=== PATIENT | male | born 1960 | race Caucasian/White ===

== ENCOUNTER 2017-08-30 10:25 | Outpatient (RCR) | payer MEDICAID, SELFPAY ==
[2017-08-30 11:55] LABS: Absolute Lymphocyte Count 0.68 X10^3/ul (0.83-4.51); Absolute Neutrophil Count 2.4 X10^3/uL (2.0-7.7); Basophil# 0.03 X10^3/uL; Basophil% 0.8 % (0-1); Eosinophils% 7.7 % (0-5); Hematocrit 37.1 % (40-54); Hemoglobin 12.5 g/dl (13.0-16.5); Lymphocyte # 0.68 X10^3/ul (4.0); Lymphocyte % 17.5 % (19-41); Mean Corp Hgb Conc 33.7 g/gl (32-36); Mean Corpuscular Volume 112.8 fL (80-94); Mean Platelet Vol. 13.9 fl (6.2-12.0); Monocyte# 0.44 X10^3/uL; Monocyte% 11.3 % (0-10); Neutrophil # 2.41 X10^3/uL (2.7-7.7); Neutrophil % 62.2 % (47-70); POSITIVE COUNT NO; POSITIVE DIFFERENTIAL NO; POSITIVE MORPHOLOGY NO; Platelet Count 56 K/mm3 (150-450); RBC Distribution Width SD 57.6 fl (35.1-43.9); Red Blood Count 3.29 M/mm3 (4.6-6.2); White Blood Count 3.9 K/mm3 (4.4-11.0)
[2017-08-30 12:03] LABS: International Normalized Ratio 1.5; Prothrombin Time (Protime)PT. 17.3 SECONDS (11.7-14.9)
[2017-08-30 12:27] LABS: AST(SGOT) 58 U/L (15-37); Alanine Aminotransfer ALT/SGPT 32 U/L (12-78); Albumin, Serum 2.4 g/dL (3.4-5.0); Alkaline Phosphatase 361 U/L (45-117); Anion Gap 7 (5-15); BUN 15 mg/dL (7-18); BUN/Creat Ratio 12.9 RATIO (10-20); Bilirubin, Direct 1.89 mg/dL (0.00-0.30); Chloride 97 mmol/L (98-107); Creatinine, Serum 1.16 mg/dL (0.70-1.30); EST Glomerular Filtration Rate 69 mL/min (>60); Est Glom Filt Rate - Afr Amer 84 mL/min (>60); Globulin 5.8 g/dL (2.2-4.2); Glucose 395 mg/dL (70-110); Potassium 4.6 mmol/L (3.5-5.1); Protein, Total 8.2 g/dL (6.4-8.2); Sodium Level 131 mmol/L (136-145)
== END 2017-08-30 10:40 | disposition home or self-care (01) ==
LOC: LAB 10:25
PROVIDERS: Family Provider Preventive Medicine Occupational Medicine; PCP Preventive Medicine Occupational Medicine
DX: Z76.82 Awaiting organ transplant status (principal)
CPT/HCPCS: 36415; 80048; 80076; 85025; 85610

== ENCOUNTER 2017-10-26 11:01 | Outpatient (RCR) | payer MEDICAID, SELFPAY ==
[2017-10-03 13:58] LABS: International Normalized Ratio 1.4; Prothrombin Time (Protime)PT. 16.7 SECONDS (11.7-14.9)
[2017-10-03 14:03] LABS: Absolute Lymphocyte Count 0.58 X10^3/ul (0.83-4.51); Absolute Neutrophil Count 2.4 X10^3/uL (2.0-7.7); Basophil# 0.04 X10^3/uL; Basophil% 1.1 % (0-1); Eosinophil# 0.24 X10^3/uL; Eosinophils% 6.4 % (0-5); Hematocrit 34.8 % (40-54); Hemoglobin 12.5 g/dl (13.0-16.5); Lymphocyte # 0.58 X10^3/ul (4.0); Lymphocyte % 15.5 % (19-41); Mean Corp Hgb Conc 35.9 g/gl (32-36); Mean Corpuscular Hgb 39.1 pg (27.0-32.0); Mean Corpuscular Volume 108.8 fL (80-94); Mean Platelet Vol. 13.3 fl (6.2-12.0); Monocyte% 13.4 % (0-10); Neutrophil # 2.37 X10^3/uL (2.7-7.7); Neutrophil % 63.3 % (47-70); RBC Distribution Width CV 13.5 % (11.6-14.6); RBC Distribution Width SD 52.2 fl (35.1-43.9); White Blood Count 3.7 K/mm3 (4.4-11.0)
[2017-10-03 14:22] LABS: AST(SGOT) 59 U/L (15-37); Alanine Aminotransfer ALT/SGPT 44 U/L (16-61); Albumin, Serum 2.4 g/dL (3.2-5.0); Alkaline Phosphatase 369 U/L (45-117); Anion Gap 9 (5-15); BUN 16 mg/dL (7-18); BUN/Creat Ratio 14.5 RATIO (10-20); Bilirubin, Direct 1.75 mg/dL (0.00-0.30); Calcium,Total 8.5 mg/dL (8.5-10.1); Chloride 91 mmol/L (98-107); EST Glomerular Filtration Rate 74 mL/min (>60); Est Glom Filt Rate - Afr Amer 89 mL/min (>60); Globulin 5.8 g/dL (2.2-4.2); Glucose 416 mg/dL (74-106); Potassium 4.4 mmol/L (3.5-5.1); Protein, Total 8.2 g/dL (6.4-8.2); Sodium Level 125 mmol/L (136-145)
[2017-10-03 14:44] LABS: Platelet Count 47 K/mm3 (150-450)
[2017-10-03 14:45] LABS: Differential Indicated SCAN CRITERIA MET; POSITIVE COUNT YES; POSITIVE DIFFERENTIAL YES; POSITIVE MORPHOLOGY NO
[2017-10-04 14:51] LABS: Pathologist Review Reviewed
[2017-10-26 11:47] LABS: Hematocrit 38.2 % (40-54); Mean Corpuscular Hgb 37.7 pg (27.0-32.0); Mean Corpuscular Volume 110.7 fL (80-94); Mean Platelet Vol. 13.5 fl (6.2-12.0); Platelet Count 55 K/mm3 (150-450); RBC Distribution Width CV 14.8 % (11.6-14.6); RBC Distribution Width SD 59.8 fl (35.1-43.9); Red Blood Count 3.45 M/mm3 (4.6-6.2); White Blood Count 3.4 K/mm3 (4.4-11.0)
[2017-10-26 11:53] LABS: Albumin, Serum 2.3 g/dL (3.2-5.0); BUN 15 mg/dL (7-18); BUN/Creat Ratio 15.4 RATIO (10-20); Calcium,Total 8.8 mg/dL (8.5-10.1); Chloride 99 mmol/L (98-107); Creatinine, Serum 0.98 mg/dL (0.70-1.30); EST Glomerular Filtration Rate 85 mL/min (>60); Est Glom Filt Rate - Afr Amer 102 mL/min (>60); Glucose 282 mg/dL (74-106); Phosphorus 3.7 mg/dL (2.5-4.9); Potassium 4.8 mmol/L (3.5-5.1); Sodium Level 133 mmol/L (136-145)
[2017-10-26 12:02] LABS: Scan Indicated on CBC? Y/N NO
[2017-10-26 12:25] LABS: International Normalized Ratio 1.4; Prothrombin Time (Protime)PT. 17.3 SECONDS (11.7-14.9)
== END 2017-10-26 15:00 | disposition home or self-care (01) ==
LOC: LAB 11:01
PROVIDERS: Family Provider Preventive Medicine Occupational Medicine; PCP Preventive Medicine Occupational Medicine
DX: Z01.812 Encounter for preprocedural laboratory examination (principal); Z76.82 Awaiting organ transplant status; R06.02 Shortness of breath
CPT/HCPCS: 36415; 80048; 80069; 80076; 85025; 85027; 85610

== ENCOUNTER → 2017-12-15 12:21 | Outpatient (CLI) | payer MEDICAID, SELFPAY ==
[2017-12-15 12:45] LABS: Absolute Lymphocyte Count 0.48 X10^3/ul (0.83-4.51); Absolute Neutrophil Count 2.5 X10^3/uL (2.0-7.7); Basophil# 0.03 X10^3/uL; Basophil% 0.8 % (0-1); Eosinophil# 0.23 X10^3/uL; Eosinophils% 6.1 % (0-5); Hematocrit 35.8 % (40-54); Hemoglobin 12.7 g/dl (13.0-16.5); Lymphocyte # 0.48 X10^3/ul (4.0); Lymphocyte % 12.8 % (19-41); Mean Corp Hgb Conc 35.5 g/gl (32-36); Mean Corpuscular Volume 109.8 fL (80-94); Mean Platelet Vol. 13.1 fl (6.2-12.0); Monocyte# 0.52 X10^3/uL; Monocyte% 13.9 % (0-10); Neutrophil # 2.48 X10^3/uL (2.7-7.7); Neutrophil % 66.1 % (47-70); Platelet Count 50 K/mm3 (150-450); RBC Distribution Width CV 13.4 % (11.6-14.6); RBC Distribution Width SD 51.9 fl (35.1-43.9); Red Blood Count 3.26 M/mm3 (4.6-6.2); White Blood Count 3.8 K/mm3 (4.4-11.0)
[2017-12-15 12:52] LABS: International Normalized Ratio 1.4; Prothrombin Time (Protime)PT. 17.4 SECONDS (11.7-14.9)
[2017-12-15 13:10] LABS: Differential Indicated SCAN CRITERIA MET; POSITIVE COUNT NO; POSITIVE DIFFERENTIAL YES; POSITIVE MORPHOLOGY NO
[2017-12-15 13:16] LABS: AST(SGOT) 58 U/L (15-37); Alanine Aminotransfer ALT/SGPT 37 U/L (16-61); Albumin, Serum 2.4 g/dL (3.2-5.0); Alkaline Phosphatase 305 U/L (45-117); Anion Gap 5 (5-15); BUN 17 mg/dL (7-18); BUN/Creat Ratio 17.1 RATIO (10-20); Bilirubin, Direct 1.64 mg/dL (0.00-0.30); Calcium,Total 8.2 mg/dL (8.5-10.1); Chloride 100 mmol/L (98-107); Creatinine, Serum 0.99 mg/dL (0.70-1.30); EST Glomerular Filtration Rate 83 mL/min (>60); Est Glom Filt Rate - Afr Amer 100 mL/min (>60); Globulin 5.2 g/dL (2.2-4.2); Glucose 338 mg/dL (74-106); Potassium 4.3 mmol/L (3.5-5.1); Protein, Total 7.6 g/dL (6.4-8.2); Sodium Level 131 mmol/L (136-145)
[2017-12-15 13:22] LABS: Platelet Estimate MKD DEC (ADEQ); Platelet Morphology LARGE
[2017-12-19 09:55] LABS: Pathologist Review Reviewed
== END ==
PROVIDERS: Family Provider Family Medicine; PCP Family Medicine
DX: K74.60 Unspecified cirrhosis of liver (principal); K74.69 Other cirrhosis of liver; Z76.82 Awaiting organ transplant status; K70.31 Alcoholic cirrhosis of liver with ascites
CPT/HCPCS: 36415; 80048; 80076; 82105; 82677; 84702; 85025; 85610; 86336

== ENCOUNTER 2018-01-12 13:32 | Outpatient (RCR) | payer MEDICAID, SELFPAY ==
[2018-01-12 15:31] LABS: International Normalized Ratio 1.6; Prothrombin Time (Protime)PT. 18.6 SECONDS (11.7-14.9)
[2018-01-12 15:42] LABS: Absolute Lymphocyte Count 0.45 X10^3/ul (0.83-4.51); Basophil# 0.02 X10^3/uL; Basophil% 0.5 % (0-1); Eosinophil# 0.25 X10^3/uL; Eosinophils% 5.8 % (0-5); Hematocrit 37.3 % (40-54); Hemoglobin 12.8 g/dl (13.0-16.5); Lymphocyte # 0.45 X10^3/ul (4.0); Lymphocyte % 10.5 % (19-41); Mean Corp Hgb Conc 34.3 g/gl (32-36); Mean Corpuscular Hgb 37.2 pg (27.0-32.0); Mean Corpuscular Volume 108.4 fL (80-94); Monocyte# 0.52 X10^3/uL; Monocyte% 12.1 % (0-10); Neutrophil # 3.04 X10^3/uL (2.7-7.7); Neutrophil % 70.9 % (47-70); Platelet Count 58 K/mm3 (150-450); RBC Distribution Width CV 14.5 % (11.6-14.6); RBC Distribution Width SD 56.9 fl (35.1-43.9); Red Blood Count 3.44 M/mm3 (4.6-6.2); White Blood Count 4.3 K/mm3 (4.4-11.0)
[2018-01-12 15:43] LABS: Differential Indicated SCAN CRITERIA MET; POSITIVE COUNT NO; POSITIVE DIFFERENTIAL YES; POSITIVE MORPHOLOGY YES
[2018-01-12 15:56] LABS: AST(SGOT) 57 U/L (15-37); Alanine Aminotransfer ALT/SGPT 36 U/L (16-61); Albumin, Serum 2.5 g/dL (3.2-5.0); Alkaline Phosphatase 363 U/L (45-117); Anion Gap 9 (5-15); BUN 15 mg/dL (7-18); BUN/Creat Ratio 16.4 RATIO (10-20); Bilirubin, Direct 1.42 mg/dL (0.00-0.30); Calcium,Total 8.4 mg/dL (8.5-10.1); Chloride 99 mmol/L (98-107); Creatinine, Serum 0.92 mg/dL (0.70-1.30); EST Glomerular Filtration Rate 91 mL/min (>60); Est Glom Filt Rate - Afr Amer 110 mL/min (>60); Globulin 5.3 g/dL (2.2-4.2); Glucose 375 mg/dL (74-106); Potassium 4.5 mmol/L (3.5-5.1); Protein, Total 7.8 g/dL (6.4-8.2); Sodium Level 133 mmol/L (136-145)
[2018-01-12 17:57] LABS: Anisocytosis 1+; Macrocytosis 1+; Platelet Estimate MKD DEC (ADEQ)
[2018-01-14 10:57] LABS: AFP, Tumor Marker 11.5 ng/mL (0.0-8.3)
== END 2018-01-12 14:00 | disposition home or self-care (01) ==
LOC: LAB 13:32
PROVIDERS: Family Provider Family Medicine; PCP Family Medicine
DX: K70.31 Alcoholic cirrhosis of liver with ascites (principal); Z76.82 Awaiting organ transplant status
CPT/HCPCS: 36415; 80048; 80076; 82105; 85025; 85610

== ENCOUNTER → 2018-02-09 12:21 | Outpatient (CLI) | payer MEDICAID, SELFPAY ==
[2018-02-09 13:53] LABS: Ferritin 183 ng/mL (26-388); Hemoglobin A1c 8.7 % (4.2-6.3); Iron 192 ug/dL (65-175); Iron Binding Capacity,Total 223 ug/dL (250-450); PERCENT IRON SATURATION 86.1 % (15.0-55.0)
== END ==
PROVIDERS: Family Provider Family Medicine; PCP Family Medicine
DX: K70.31 Alcoholic cirrhosis of liver with ascites (principal); Z76.82 Awaiting organ transplant status; E11.9 Type 2 diabetes mellitus without complications
CPT/HCPCS: 36415; 82728; 83036; 83540; 83550

== ENCOUNTER 2018-02-11 10:33 | Outpatient (RCR) | payer MEDICAID, SELFPAY ==
[2018-02-11 11:08] LABS: Absolute Lymphocyte Count 0.49 X10^3/ul (0.83-4.51); Absolute Neutrophil Count 3.3 X10^3/uL (2.0-7.7); Basophil# 0.03 X10^3/uL; Basophil% 0.6 % (0-1); Eosinophil# 0.32 X10^3/uL; Eosinophils% 6.9 % (0-5); Hematocrit 34.4 % (40-54); Hemoglobin 12.2 g/dl (13.0-16.5); Lymphocyte # 0.49 X10^3/ul (4.0); Lymphocyte % 10.5 % (19-41); Mean Corp Hgb Conc 35.5 g/gl (32-36); Mean Corpuscular Hgb 37.8 pg (27.0-32.0); Mean Corpuscular Volume 106.5 fL (80-94); Mean Platelet Vol. 13.8 fl (6.2-12.0); Monocyte# 0.56 X10^3/uL; Neutrophil # 3.26 X10^3/uL (2.7-7.7); Neutrophil % 69.8 % (47-70); Platelet Count 48 K/mm3 (150-450); RBC Distribution Width CV 13.9 % (11.6-14.6); RBC Distribution Width SD 54.1 fl (35.1-43.9); Red Blood Count 3.23 M/mm3 (4.6-6.2); White Blood Count 4.7 K/mm3 (4.4-11.0)
[2018-02-11 11:11] LABS: Differential Indicated SCAN CRITERIA MET; POSITIVE COUNT YES; POSITIVE DIFFERENTIAL YES; POSITIVE MORPHOLOGY NO
[2018-02-11 11:51] LABS: AST(SGOT) 55 U/L (15-37); Alanine Aminotransfer ALT/SGPT 33 U/L (16-61); Albumin, Serum 2.4 g/dL (3.2-5.0); Alkaline Phosphatase 258 U/L (45-117); Anion Gap 5 (5-15); BUN 12 mg/dL (7-18); BUN/Creat Ratio 13.5 RATIO (10-20); Bilirubin, Direct 1.45 mg/dL (0.00-0.30); Calcium,Total 8.3 mg/dL (8.5-10.1); Chloride 100 mmol/L (98-107); Creatinine, Serum 0.89 mg/dL (0.70-1.30); EST Glomerular Filtration Rate 94 mL/min (>60); Est Glom Filt Rate - Afr Amer 114 mL/min (>60); Glucose 174 mg/dL (74-106); Potassium 4.1 mmol/L (3.5-5.1); Protein, Total 7.4 g/dL (6.4-8.2); Sodium Level 133 mmol/L (136-145)
[2018-02-11 12:23] LABS: International Normalized Ratio 1.5; Prothrombin Time (Protime)PT. 18.1 SECONDS (11.7-14.9)
[2018-02-11 12:33] LABS: Platelet Estimate MKD DEC (ADEQ)
[2018-02-12 10:15] LABS: AFP, Tumor Marker 10.8 ng/mL (0.0-8.3)
[2018-02-13 13:01] LABS: Pathologist Review Reviewed
== END 2018-02-11 11:00 | disposition home or self-care (01) ==
LOC: LAB 10:33
PROVIDERS: Family Provider Family Medicine; PCP Family Medicine
DX: K70.31 Alcoholic cirrhosis of liver with ascites (principal); Z76.82 Awaiting organ transplant status
CPT/HCPCS: 36415; 80048; 80076; 82105; 85025; 85610

== ENCOUNTER 2018-03-14 14:59 | Outpatient (RCR) | payer MEDICAID, SELFPAY ==
[2018-03-14 15:47] LABS: International Normalized Ratio 1.5; Prothrombin Time (Protime)PT. 17.7 SECONDS (11.7-14.9)
[2018-03-14 16:35] LABS: Absolute Lymphocyte Count 0.59 X10^3/ul (0.83-4.51); Absolute Neutrophil Count 2.9 X10^3/uL (2.0-7.7); Basophil# 0.03 X10^3/uL; Basophil% 0.7 % (0-1); Hematocrit 34.5 % (40-54); Hemoglobin 12.1 g/dl (13.0-16.5); Lymphocyte # 0.59 X10^3/ul (4.0); Lymphocyte % 13.7 % (19-41); Mean Corp Hgb Conc 35.1 g/gl (32-36); Mean Corpuscular Hgb 38.5 pg (27.0-32.0); Mean Corpuscular Volume 109.9 fL (80-94); Mean Platelet Vol. 13.4 fl (6.2-12.0); Monocyte# 0.49 X10^3/uL; Monocyte% 11.4 % (0-10); Neutrophil # 2.89 X10^3/uL (2.7-7.7); RBC Distribution Width CV 13.8 % (11.6-14.6); RBC Distribution Width SD 54.2 fl (35.1-43.9); Red Blood Count 3.14 M/mm3 (4.6-6.2); White Blood Count 4.3 K/mm3 (4.4-11.0)
[2018-03-14 16:43] LABS: AST(SGOT) 61 U/L (15-37); Alanine Aminotransfer ALT/SGPT 35 U/L (16-61); Albumin, Serum 2.5 g/dL (3.2-5.0); Alkaline Phosphatase 267 U/L (45-117); Anion Gap 6 (5-15); BUN 16 mg/dL (7-18); BUN/Creat Ratio 16.7 RATIO (10-20); Bilirubin, Direct 1.48 mg/dL (0.00-0.30); Calcium,Total 8.5 mg/dL (8.5-10.1); Chloride 98 mmol/L (98-107); Creatinine, Serum 0.96 mg/dL (0.70-1.30); EST Glomerular Filtration Rate 86 mL/min (>60); Est Glom Filt Rate - Afr Amer 105 mL/min (>60); Globulin 5.3 g/dL (2.2-4.2); Glucose 309 mg/dL (74-106); Potassium 4.6 mmol/L (3.5-5.1); Protein, Total 7.8 g/dL (6.4-8.2); Sodium Level 131 mmol/L (136-145)
[2018-03-14 17:02] LABS: Differential Indicated SCAN CRITERIA MET; POSITIVE COUNT YES; POSITIVE DIFFERENTIAL YES; POSITIVE MORPHOLOGY NO
[2018-03-14 18:10] LABS: Platelet Count 48 K/mm3 (150-450)
[2018-03-16 09:39] LABS: AFP, Tumor Marker 10.2 ng/mL (0.0-8.3)
== END 2018-03-14 16:00 | disposition home or self-care (01) ==
LOC: LAB 14:59
PROVIDERS: Family Provider Family Medicine; PCP Family Medicine
DX: K70.31 Alcoholic cirrhosis of liver with ascites (principal); Z76.82 Awaiting organ transplant status
CPT/HCPCS: 36415; 80048; 80076; 82105; 85025; 85610

== ENCOUNTER 2018-04-14 12:54 | Outpatient (RCR) | payer MEDICAID, SELFPAY ==
[2018-04-14 13:39] LABS: International Normalized Ratio 1.4; Prothrombin Time (Protime)PT. 17.5 SECONDS (11.7-14.9)
[2018-04-14 13:57] LABS: AST(SGOT) 55 U/L (15-37); Alanine Aminotransfer ALT/SGPT 33 U/L (16-61); Albumin, Serum 2.5 g/dL (3.2-5.0); Alkaline Phosphatase 274 U/L (45-117); Anion Gap 9 (5-15); BUN 15 mg/dL (7-18); BUN/Creat Ratio 15.7 RATIO (10-20); Bilirubin, Direct 1.44 mg/dL (0.00-0.30); Calcium,Total 8.5 mg/dL (8.5-10.1); Chloride 100 mmol/L (98-107); Creatinine, Serum 0.95 mg/dL (0.70-1.30); EST Glomerular Filtration Rate 87 mL/min (>60); Est Glom Filt Rate - Afr Amer 105 mL/min (>60); Glucose 281 mg/dL (74-106); Potassium 5.1 mmol/L (3.5-5.1); Protein, Total 7.5 g/dL (6.4-8.2); Sodium Level 134 mmol/L (136-145)
[2018-04-14 14:05] LABS: Absolute Lymphocyte Count 0.54 X10^3/ul (0.83-4.51); Absolute Neutrophil Count 3.2 X10^3/uL (2.0-7.7); Basophil# 0.03 X10^3/uL; Basophil% 0.6 % (0-1); Eosinophils% 6.3 % (0-5); Hematocrit 36.6 % (40-54); Hemoglobin 12.8 g/dl (13.0-16.5); Lymphocyte # 0.54 X10^3/ul (4.0); Lymphocyte % 11.4 % (19-41); Mean Corpuscular Volume 108.6 fL (80-94); Mean Platelet Vol. 13.6 fl (6.2-12.0); Monocyte# 0.66 X10^3/uL; Monocyte% 13.9 % (0-10); Neutrophil # 3.21 X10^3/uL (2.7-7.7); Neutrophil % 67.6 % (47-70); RBC Distribution Width CV 13.8 % (11.6-14.6); RBC Distribution Width SD 54.7 fl (35.1-43.9); Red Blood Count 3.37 M/mm3 (4.6-6.2); White Blood Count 4.8 K/mm3 (4.4-11.0)
[2018-04-14 14:17] LABS: Differential Indicated SCAN CRITERIA MET; POSITIVE COUNT YES; POSITIVE DIFFERENTIAL YES; POSITIVE MORPHOLOGY NO; Platelet Count 48 K/mm3 (150-450)
[2018-04-14 14:46] LABS: Platelet Estimate MKD DEC (ADEQ); Platelet Morphology LARGE
[2018-04-15 09:29] LABS: AFP, Tumor Marker 10.4 ng/mL (0.0-8.3)
[2018-04-17 15:07] LABS: Pathologist Review Reviewed
== END 2018-04-14 14:00 | disposition home or self-care (01) ==
LOC: LAB 12:54
PROVIDERS: Family Provider Family Medicine; PCP Family Medicine
DX: K70.31 Alcoholic cirrhosis of liver with ascites (principal); Z76.82 Awaiting organ transplant status
CPT/HCPCS: 36415; 80048; 80076; 82105; 85025; 85610

== ENCOUNTER 2018-05-16 10:45 | Outpatient (RCR) | payer MEDICAID, SELFPAY ==
[2018-05-16 11:48] LABS: Absolute Neutrophil Count 3.5 X10^3/uL (2.0-7.7); Basophil# 0.04 X10^3/uL; Basophil% 0.8 % (0-1); Differential Indicated SCAN CRITERIA MET; Eosinophil# 0.28 X10^3/uL; Eosinophils% 5.9 % (0-5); Hematocrit 36.4 % (40-54); Hemoglobin 12.6 g/dl (13.0-16.5); Lymphocyte % 8.4 % (19-41); Mean Corp Hgb Conc 34.6 g/gl (32-36); Mean Corpuscular Hgb 37.2 pg (27.0-32.0); Mean Corpuscular Volume 107.4 fL (80-94); Mean Platelet Vol. 13.9 fl (6.2-12.0); Monocyte# 0.53 X10^3/uL; Monocyte% 11.2 % (0-10); Neutrophil # 3.49 X10^3/uL (2.7-7.7); Neutrophil % 73.5 % (47-70); POSITIVE COUNT NO; POSITIVE DIFFERENTIAL YES; POSITIVE MORPHOLOGY NO; Platelet Count 54 K/mm3 (150-450); RBC Distribution Width CV 14.2 % (11.6-14.6); RBC Distribution Width SD 55.8 fl (35.1-43.9); Red Blood Count 3.39 M/mm3 (4.6-6.2); White Blood Count 4.8 K/mm3 (4.4-11.0)
[2018-05-16 11:52] LABS: International Normalized Ratio 1.5; Prothrombin Time (Protime)PT. 17.9 SECONDS (11.7-14.9)
[2018-05-16 12:22] LABS: Vitamin B12 1249 pg/mL (211-911)
[2018-05-16 12:34] LABS: AST(SGOT) 56 U/L (15-37); Alanine Aminotransfer ALT/SGPT 38 U/L (16-61); Albumin, Serum 2.5 g/dL (3.2-5.0); Alkaline Phosphatase 303 U/L (45-117); Anion Gap 7 (5-15); BUN 16 mg/dL (7-18); BUN/Creat Ratio 18.8 RATIO (10-20); Bilirubin, Direct 1.41 mg/dL (0.00-0.30); Calcium,Total 8.8 mg/dL (8.5-10.1); Chloride 102 mmol/L (98-107); Creatinine, Serum 0.85 mg/dL (0.70-1.30); EST Glomerular Filtration Rate 99 mL/min (>60); Est Glom Filt Rate - Afr Amer 119 mL/min (>60); Glucose 183 mg/dL (74-106); Potassium 4.5 mmol/L (3.5-5.1); Protein, Total 7.5 g/dL (6.4-8.2); Sodium Level 135 mmol/L (136-145); Thyroid Stim Hormone (TSH) 2.62 uIU/mL (0.358-3.74)
[2018-05-19 03:07] LABS: Albumin 2.8 g/dL (2.9-4.4); Alpha-1-Globulins 0.2 g/dL (0.0-0.4); Alpha-2-Globulins 0.5 g/dL (0.4-1.0); Gamma Globulin 2.8 g/dL (0.4-1.8); Immunoglobulin A 789 mg/dL (90-386); Immunoglobulin G 2401 mg/dL (700-1600); Immunoglobulin M 259 mg/dL (20-172); PROEL- TOTAL PROTEIN 7.3 g/dL (6.0-8.5)
[2018-05-19 10:59] LABS: AFP, Tumor Marker 10.5 ng/mL (0.0-8.3); Vitamin B1, Thiamine 143.7 nmol/L (66.5-200.0)
== END 2018-05-16 12:00 | disposition home or self-care (01) ==
LOC: LAB 10:45
PROVIDERS: Family Provider Family Medicine; PCP Family Medicine
DX: K70.31 Alcoholic cirrhosis of liver with ascites (principal); G62.9 Polyneuropathy, unspecified; Z76.82 Awaiting organ transplant status
CPT/HCPCS: 36415; 80048; 80076; 82105; 82607; 82784; 84165; 84425; 84443; 85025; 85610; 86334

== ENCOUNTER 2018-06-30 09:50 | Outpatient (RCR) | payer MEDICAID, SELFPAY ==
[2018-06-30 11:20] LABS: Absolute Lymphocyte Count 0.48 X10^3/ul (0.83-4.51); Absolute Neutrophil Count 3.1 X10^3/uL (2.0-7.7); Basophil# 0.07 X10^3/uL; Basophil% 1.5 % (0-1); Differential Indicated SCAN CRITERIA MET; Eosinophil# 0.32 X10^3/uL; Eosinophils% 7.1 % (0-5); Hemoglobin 12.6 g/dl (13.0-16.5); Lymphocyte # 0.48 X10^3/ul (4.0); Lymphocyte % 10.6 % (19-41); Mean Corp Hgb Conc 34.1 g/gl (32-36); Mean Corpuscular Hgb 37.7 pg (27.0-32.0); Mean Corpuscular Volume 110.8 fL (80-94); Monocyte# 0.57 X10^3/uL; Monocyte% 12.6 % (0-10); Neutrophil # 3.07 X10^3/uL (2.7-7.7); POSITIVE COUNT NO; POSITIVE DIFFERENTIAL YES; POSITIVE MORPHOLOGY YES; Platelet Count 54 K/mm3 (150-450); RBC Distribution Width CV 14.8 % (11.6-14.6); RBC Distribution Width SD 59.6 fl (35.1-43.9); Red Blood Count 3.34 M/mm3 (4.6-6.2); White Blood Count 4.5 K/mm3 (4.4-11.0)
[2018-06-30 11:36] LABS: AST(SGOT) 64 U/L (15-37); Alanine Aminotransfer ALT/SGPT 33 U/L (16-61); Albumin, Serum 2.5 g/dL (3.2-5.0); Alkaline Phosphatase 233 U/L (45-117); Anion Gap 7 (5-15); BUN 15 mg/dL (7-18); Bilirubin, Direct 1.59 mg/dL (0.00-0.30); Calcium,Total 8.4 mg/dL (8.5-10.1); Chloride 102 mmol/L (98-107); Cholesterol 102 mg/dL (200); Creatinine, Serum 0.83 mg/dL (0.70-1.30); EST Glomerular Filtration Rate 101 mL/min (>60); Est Glom Filt Rate - Afr Amer 123 mL/min (>60); Globulin 5.1 g/dL (2.2-4.2); Glucose 119 mg/dL (74-106); High Density Lipoprotein 48 mg/dL; Protein, Total 7.6 g/dL (6.4-8.2); Sodium Level 135 mmol/L (136-145); Thyroid Stim Hormone (TSH) 4.59 uIU/mL (0.358-3.74); Triglycerides 79 mg/dL; Very Low Density Lipoprotein 16 mg/dL (5-40)
[2018-06-30 11:58] LABS: International Normalized Ratio 1.4; Prothrombin Time (Protime)PT. 17.5 SECONDS (11.7-14.9)
[2018-07-03 11:52] LABS: AFP, Tumor Marker 10.8 ng/mL (0.0-8.3)
== END 2018-07-28 12:27 | disposition home or self-care (01) ==
LOC: LAB 09:50
PROVIDERS: Family Provider Family Medicine; PCP Family Medicine
DX: K70.31 Alcoholic cirrhosis of liver with ascites (principal); Z76.82 Awaiting organ transplant status; R94.6 Abnormal results of thyroid function studies; Z86.73 Personal history of transient ischemic attack (TIA), and cerebral infarction without residual deficits
CPT/HCPCS: 36415; 80048; 80061; 80076; 82105; 84443; 85025; 85610

== ENCOUNTER → 2018-07-24 13:30 | Outpatient (CLI) | payer MEDICAID, SELFPAY ==
[2018-07-24 16:41] LABS: Vitamin B12 1342 pg/mL (211-911)
[2018-07-28 03:07] LABS: Albumin 2.9 g/dL (2.9-4.4); Alpha-1-Globulins 0.2 g/dL (0.0-0.4); Alpha-2-Globulins 0.5 g/dL (0.4-1.0); Gamma Globulin 2.5 g/dL (0.4-1.8); Immunoglobulin A 716 mg/dL (90-386); Immunoglobulin G 2137 mg/dL (700-1600); Immunoglobulin M 243 mg/dL (20-172); PROEL- TOTAL PROTEIN 7.1 g/dL (6.0-8.5)
== END ==
PROVIDERS: Family Provider Family Medicine; PCP Family Medicine
DX: G62.9 Polyneuropathy, unspecified (principal)
CPT/HCPCS: 36415; 82607; 82784; 84165; 84425; 86334

== ENCOUNTER 2018-10-08 16:56 | Emergency (ER) | payer MEDICAID, SELFPAY ==
[2018-10-08 16:57] VITALS: BP 89/44; PULSE 68; RESP 16; TEMP 36.4; O2SAT 98; BMI 24.3
[2018-10-08 17:13] VITALS: BP 95/64; PULSE 75; RESP 18
[2018-10-08] MEDS: 0.9% Normal Saline 1,000 ML 150 ML IV (17:58)
[2018-10-08] MEDS: Ondansetron 4 MG/2 ML Vial IV ×2 (17:58→22:08)
[2018-10-08 18:02] LABS: AST(SGOT) 56 U/L (15-37); Alanine Aminotransfer ALT/SGPT 45 U/L (16-61); Albumin, Serum 2.8 g/dL (3.2-5.0); Alkaline Phosphatase 245 U/L (45-117); Anion Gap 10 (5-15); BUN 39 mg/dL (7-18); BUN/Creat Ratio 46.5 RATIO (10-20); Bilirubin, Direct 1.35 mg/dL (0.00-0.30); Calcium,Total 8.9 mg/dL (8.5-10.1); Chloride 100 mmol/L (98-107); Creatinine, Serum 0.84 mg/dL (0.70-1.30); EST Glomerular Filtration Rate 101 mL/min (>60); Est Glom Filt Rate - Afr Amer 122 mL/min (>60); Estimated Creatinine Clearance 101.39 ml/min; Globulin 4.7 g/dL (2.2-4.2); Glucose 299 mg/dL (74-106); Lipase 112 U/L (73-393); Potassium 5.2 mmol/L (3.5-5.1); Protein, Total 7.5 g/dL (6.4-8.2); Sodium Level 135 mmol/L (136-145)
[2018-10-08 18:06] LABS: International Normalized Ratio 1.5; Prothrombin Time (Protime)PT. 17.8 SECONDS (11.7-14.9)
[2018-10-08 18:07] LABS: Absolute Lymphocyte Count 0.55 X10^3/ul (0.83-4.51); Absolute Neutrophil Count 5.9 X10^3/uL (2.0-7.7); Basophil# 0.02 X10^3/uL; Basophil% 0.3 % (0-1); Eosinophil# 0.06 X10^3/uL; Eosinophils% 0.9 % (0-5); Hematocrit 32.7 % (40-54); Hemoglobin 11.2 g/dl (13.0-16.5); Lymphocyte # 0.55 X10^3/ul (4.0); Mean Corp Hgb Conc 34.3 g/gl (32-36); Mean Corpuscular Volume 110.8 fL (80-94); Mean Platelet Vol. 12.9 fl (6.2-12.0); Monocyte# 0.35 X10^3/uL; Monocyte% 5.1 % (0-10); Neutrophil # 5.85 X10^3/uL (2.7-7.7); Neutrophil % 85.6 % (47-70); Partial Thromboplast Time 46.2 Seconds (24.1-36.2); Platelet Count 74 K/mm3 (150-450); RBC Distribution Width CV 14.9 % (11.6-14.6); RBC Distribution Width SD 59.8 fl (35.1-43.9); Red Blood Count 2.95 M/mm3 (4.6-6.2); White Blood Count 6.8 K/mm3 (4.4-11.0)
[2018-10-08 18:08] LABS: Differential Indicated SCAN CRITERIA MET; POSITIVE COUNT NO; POSITIVE DIFFERENTIAL YES; POSITIVE MORPHOLOGY NO
[2018-10-08 18:22] LABS: Differential Comment SCANNED
--- NOTE | 2018-10-08 19:49 | ED.DCSUM_ITS ---
- ER Visit Summary Date of Service: 10/08/18 Chief Complaint: GI bleed History of Present Illness: The patient is a 58 M with history of alcoholic cirrhosis and diabetes. Patient's followed by liver team at . Patient noted dark tarry stools since last evening. Had one episode of emesis today with black emesis. Approximately 6 episodes of diarrhea today with dark black stool. He was in the liver transplant list at one time but was taken off due to pulmonary hypertension. He does have a history of esophageal varices. He was last scoped in July. Physical Examination: Blood pressure is 89/44, temperature 97.6, heart rate 68, respiratory rate 16, pulse ox 98% on room air. Patient is a cachectic appearing gentleman who appears much older than his stated age. Head neck examination grossly unremarkable. Heart is regular rate and rhythm. Lungs sounds are clear. Abdomen is soft and nontender. Rectal examination reveals scant black material in rectal vault. Skin examination does reveal pallor. Test Results: CBC was normal white count with hemoglobin 11.2. It appears his baseline hemoglobin is usually in the 12 range, last checked in June. Platelet count is 74,000 which is actually increased when compared to prior values. Chemistry studies significant for a sodium of 135, potassium 5.2, glucose 299, BUN is 39. LFTs significant for total bili of 2.9. Direct bili 1.35, alk phos 245. AST is 56. Lipase is normal. INR is 1.5. Stool guaiac was sent and is positive. Emergency Department Course and Treatment: Patient states his baseline systolic blood pressures in the 80s and 90s. He is given IV fluids, Zofran, and IV Protonix. Repeat blood pressure at this time is 112/69 with a heart rate of 77. With his extensive GI history and all of his specialist being at , I have recommended transfer to that facility as I do not have specialist here if he were to suddenly have worsening bleeding. Patient will be transferred to . Treatment Plan: [] Disposition: Transfer Impression: GI bleed with history of cirrhosis This note was generated with [employer] dictation software. It may contain incorrect words, spelling, and punctuation that were not noted in review of the chart prior to signing ED Disposition - Plan for ED Patient: Referrals: Satnam Eaton DO [Primary Care Provider] -
[2018-10-08 20:11] VITALS: BP 112/69; PULSE 74; RESP 12; O2SAT 99
[2018-10-08] MEDS: Morphine 4 MG/ML Syringe IV (22:08)
[2018-10-08 22:10] VITALS: BP 101/72; PULSE 71; RESP 16; O2SAT 98
[2018-10-08 23:08] VITALS: BP 92/56; PULSE 69; RESP 13; O2SAT 94
[2018-10-09 00:06] VITALS: BP 89/60; PULSE 69; RESP 14; O2SAT 97
== END 2018-10-09 00:15 | disposition home or self-care (01) ==
PROVIDERS: Emergency Provider Emergency Medicine; Family Provider Family Medicine; PCP Family Medicine
DX: K92.2 Gastrointestinal hemorrhage, unspecified (principal); K70.30 Alcoholic cirrhosis of liver without ascites; R19.7 Diarrhea, unspecified; E11.9 Type 2 diabetes mellitus without complications; Z79.899 Other long term (current) drug therapy; Z72.0 Tobacco use
CPT/HCPCS: 80048; 80076; 82274; 83690; 85025; 85610; 85730; 86850; 86900; 96361; 96365; 96375; 96376; 99285; J7030; A4216; J2405

== ENCOUNTER → 2018-11-27 13:16 | Outpatient (CLI) | payer MEDICAID, SELFPAY ==
[2018-11-27 13:58] LABS: Absolute Neutrophil Count 3.2 X10^3/uL (2.0-7.7); Basophil# 0.02 X10^3/uL; Basophil% 0.5 % (0-1); Eosinophil# 0.21 X10^3/uL; Eosinophils% 5.2 % (0-5); Hematocrit 34.2 % (40-54); Hemoglobin 11.7 g/dl (13.0-16.5); Lymphocyte % 12.3 % (19-41); Mean Corp Hgb Conc 34.2 g/gl (32-36); Mean Corpuscular Hgb 34.8 pg (27.0-32.0); Mean Corpuscular Volume 101.8 fL (80-94); Monocyte# 0.18 X10^3/uL; Monocyte% 4.4 % (0-10); Neutrophil # 3.16 X10^3/uL (2.7-7.7); Neutrophil % 77.6 % (47-70); Platelet Count 76 K/mm3 (150-450); RBC Distribution Width CV 15.2 % (11.6-14.6); RBC Distribution Width SD 56.5 fl (35.1-43.9); Red Blood Count 3.36 M/mm3 (4.6-6.2); White Blood Count 4.1 K/mm3 (4.4-11.0)
[2018-11-27 14:02] LABS: International Normalized Ratio 1.4; Prothrombin Time (Protime)PT. 17.2 SECONDS (11.7-14.9)
[2018-11-27 14:15] LABS: Differential Indicated SCAN CRITERIA MET; POSITIVE COUNT NO; POSITIVE DIFFERENTIAL YES; POSITIVE MORPHOLOGY NO
[2018-11-27 14:32] LABS: AST(SGOT) 45 U/L (15-37); Alanine Aminotransfer ALT/SGPT 34 U/L (16-61); Albumin, Serum 2.8 g/dL (3.2-5.0); Alkaline Phosphatase 212 U/L (45-117); Anion Gap 7 (5-15); BUN 10 mg/dL (7-18); BUN/Creat Ratio 11.6 RATIO (10-20); Bilirubin, Direct 1.31 mg/dL (0.00-0.30); Calcium,Total 8.6 mg/dL (8.5-10.1); Chloride 98 mmol/L (98-107); Creatinine, Serum 0.86 mg/dL (0.70-1.30); EST Glomerular Filtration Rate 97 mL/min (>60); Est Glom Filt Rate - Afr Amer 118 mL/min (>60); Globulin 4.9 g/dL (2.2-4.2); Glucose 312 mg/dL (74-106); Potassium 4.2 mmol/L (3.5-5.1); Protein, Total 7.7 g/dL (6.4-8.2); Sodium Level 131 mmol/L (136-145)
[2018-11-27 15:24] LABS: Amphetamine Urine VISTA NEGATIVE (<1000 ng/mL); Barbiturate Urine VISTA NEGATIVE (< 200 ng/mL); Benzodiazepine Urine VISTA NEGATIVE (< 200 ng/mL); Cocaine Urine VISTA NEGATIVE (< 300 ng/mL); Ecstacy Urine VISTA NEGATIVE (< 500 ng/mL); Methadone Urine VISTA NEGATIVE (< 300 ng/mL); PCP Urine VISTA NEGATIVE (< 25 ng/mL); THC Urine VISTA NEGATIVE (< 50 ng/mL); Vista UDS pH Range 5
[2018-11-28 12:17] LABS: AFP, Tumor Marker 18.6 ng/mL (0.0-8.3)
== END ==
PROVIDERS: Family Provider Family Medicine; PCP Family Medicine
DX: K70.31 Alcoholic cirrhosis of liver with ascites (principal)
CPT/HCPCS: 36415; 80048; 80076; 80307; 82105; 85025; 85610

== ENCOUNTER 2019-01-04 22:58 | Emergency (ER) | payer MEDICAID, SELFPAY ==
[2019-01-04 22:59] VITALS: BP 87/59; BP 94/71; PULSE 83; PULSE 86; RESP 12; RESP 16; TEMP 37.1; O2SAT 96; O2SAT 98; BMI 24.5
[2019-01-04 23:16] LABS: Bedside Glucose 306 mg/dL (70-110)
--- NOTE | 2019-01-04 23:20 | ED.VIS.GEN ---
History of Present Illness Chief Complaint: GI Bleed Informant: Patient Narrative: Patient stated he has been having some dark stools since 2 AM today. He states he has had approximately 10 dark stools of small amount. No bright red blood per rectum. It cleared up this morning and then started back up again this evening. He has a history of liver failure liver cirrhosis secondary to alcohol and esophageal varices. He had a similar episode in September of this year and was transferred up to for further evaluation. His hemoglobin was stable at that time. He stated that they did an endoscopy and stated that his esophageal varices were fine. He was discharged from there with no colonoscopy. The patient stated he denies any other symptoms. No upper GI bleeding. He is not on a blood thinner. He was on the transplant list for his liver but was taken off due to pulmonary hypertension. - Past Medical History (1) Acute kidney failure Status: Acute (2) Decreased oral intake Status: Acute (3) Generalized weakness Status: Acute (4) Gram-negative bacteremia Status: Acute (5) Hepatic encephalopathy Status: Acute (6) Hyponatremia Status: Acute (7) Septic shock Status: Acute (8) Alcoholic cirrhosis of liver Status: Chronic (9) DM2 (diabetes mellitus, type 2) Status: Chronic (10) Pancytopenia Status: Chronic Past Medical History - Allergies and Home Meds Allergies/Adverse Reactions: Allergies No Known Allergies Allergy (Verified 01/04/19 23:03) Primary Care Physician: Satnam Eaton DO [Primary Care Provider] - Prior records reviewed: Yes Surgical History: - - Knee surgery as a child Smoking Status: Current every day smoker Alcohol: None, Sober Drugs: None - Family History Maternal Family History: Reports: Diabetes Paternal Family History: Reports: No pertinent history Review of Systems General: Denies: Chills, Fever, Sweats Eyes: Denies: Visual changes - bilaterally, Diplopia ENT: Denies: Rhinorrhea, Sore throat Cardiovascular: Denies: Chest pain, Palpitations Respiratory: Denies: Dyspnea, Cough, Dyspnea on exertion Gastrointestinal: Reports: Melena. Denies: Abdominal pain, Nausea, Vomiting, Diarrhea, Hematochezia Genitourinary: Denies: Dysuria, Hematuria, Frequency Musculoskeletal: Denies: Back pain, Extremity Pain Skin: Denies: Rash, Wounds Neurological: Denies: Headache, Weakness, Numbness Physical Exam Vital Signs/Narrative: Vital Signs Temp Pulse Resp BP Pulse Ox 01/04/19 22:59 98.8 F 83 12 94/71 98 General: Well nourished, Well developed, No Acute Distress Head: Normocephalic, Atraumatic Eyes: Perrl, EOMI ENT: Moist mucous membranes, No rhinorrhea Neck: Supple, Nontender Cardiovascular: Regular rate, Regular rhythm, No murmurs Respiratory: No distress, CTA bilaterally, Chest nontender Abdomen: Soft, Nontender, Nondistended, Normal bowel sounds Back: Nontender, Normal Inspection Extremities: Nontender, No edema Skin: Normal color, No rash Neurological: Alert, Oriented x3, Cranial nerves II-XII grossly intact, Normal Strength, Normal Sensation Psychological: Normal affect, Normal Mood Diagnostic/Tx/Re-eval - Medical Decision Making Patient's pressure on arrival was 90/60. Patient stated this is normal for him. He is not tachycardic. Resting comfortably. Lab work obtained. Given IV fluid bolus. Shows a hemoglobin of 10.7. Patient had one melanotic stool in the ER. INR is 1.6 due to his liver disease. He remains stable per patient. Blood pressure remains 90s over 60s but he states this is his normal. Patient discussed with GI and he will be transferred there for further evaluation and treatment of his upper GI bleed. Will be admitted to the ICU given another IV fluid bolus as well as Protonix. And a dose of vitamin K. Patient stated his last scope showed no bleeding to his varices and his melanotic stool stopped on their own. And had one melanotic stool in the department. Orthostatics are negative. I do not feel he needs an acute blood transfusion at this time. Will be monitored closely. I do not think he needs FFP as his INR is 1.6 and will unlikely be lowered further with FFP. Fibrinogen is not less than 150 therefore I do not feel he needs cryoprecipitate. - Critical Care Time Critical care time (excluding procedures): 30-74 minutes ED Disposition - Plan for ED Patient: Disposition: Acute Care Hospital - Other Diagnosis: Upper GI bleed Referrals: Satnam Eaton DO [Primary Care Provider] -
[2019-01-04 23:37] LABS: International Normalized Ratio 1.6
[2019-01-04 23:38] LABS: Absolute Lymphocyte Count 0.39 X10^3/ul (0.83-4.51); Absolute Neutrophil Count 3.6 X10^3/uL (2.0-7.7); Basophil# 0.02 X10^3/uL; Basophil% 0.4 % (0-1); Eosinophil# 0.09 X10^3/uL; Eosinophils% 1.9 % (0-5); Hematocrit 31.4 % (40-54); Hemoglobin 10.7 g/dl (13.0-16.5); Lymphocyte # 0.39 X10^3/ul (4.0); Lymphocyte % 8.3 % (19-41); Mean Corp Hgb Conc 34.1 g/gl (32-36); Mean Corpuscular Hgb 34.7 pg (27.0-32.0); Mean Corpuscular Volume 101.9 fL (80-94); Mean Platelet Vol. 11.3 fl (6.2-12.0); Monocyte% 12.8 % (0-10); Neutrophil # 3.56 X10^3/uL (2.7-7.7); Neutrophil % 76.2 % (47-70); Platelet Count 72 K/mm3 (150-450); RBC Distribution Width CV 16.4 % (11.6-14.6); RBC Distribution Width SD 58.5 fl (35.1-43.9); Red Blood Count 3.08 M/mm3 (4.6-6.2); White Blood Count 4.7 K/mm3 (4.4-11.0)
[2019-01-04 23:40] LABS: Differential Indicated SCAN CRITERIA MET; POSITIVE COUNT NO; POSITIVE DIFFERENTIAL YES; POSITIVE MORPHOLOGY NO
[2019-01-04 23:43] LABS: ALB/GLOB Ratio 0.6 RATIO (0.9-2.4); AST(SGOT) 38 U/L (15-37); Alanine Aminotransfer ALT/SGPT 25 U/L (16-61); Albumin, Serum 2.8 g/dL (3.2-5.0); Alkaline Phosphatase 185 U/L (45-117); Anion Gap 6 (5-15); BUN 26 mg/dL (7-18); BUN/Creat Ratio 28.5 RATIO (10-20); Calcium,Total 8.6 mg/dL (8.5-10.1); Chloride 101 mmol/L (98-107); Creatinine, Serum 0.91 mg/dL (0.70-1.30); EST Glomerular Filtration Rate 91 mL/min (>60); Est Glom Filt Rate - Afr Amer 110 mL/min (>60); Estimated Creatinine Clearance 93.59 ml/min; Globulin 4.7 g/dL (2.2-4.2); Glucose 280 mg/dL (74-106); Potassium 4.2 mmol/L (3.5-5.1); Protein, Total 7.5 g/dL (6.4-8.2); Sodium Level 133 mmol/L (136-145)
[2019-01-05 01:26] VITALS: BP 94/63; PULSE 81; RESP 16; O2SAT 95
[2019-01-05] MEDS: 0.9% Normal Saline 1,000 ML 1000 ML IV (03:07)
[2019-01-05 03:25] VITALS: BP 90/62; PULSE 89; RESP 18
[2019-01-05 03:56] VITALS: BP 95/67; BP 96/61; PULSE 77; PULSE 79
[2019-01-05 04:02] LABS: Absolute Lymphocyte Count 0.45 X10^3/ul (0.83-4.51); Absolute Neutrophil Count 3.3 X10^3/uL (2.0-7.7); Basophil# 0.01 X10^3/uL; Basophil% 0.2 % (0-1); Eosinophils% 2.3 % (0-5); Hematocrit 27.3 % (40-54); Hemoglobin 9.2 g/dl (13.0-16.5); Lymphocyte # 0.45 X10^3/ul (4.0); Lymphocyte % 10.3 % (19-41); Mean Corp Hgb Conc 33.7 g/gl (32-36); Mean Corpuscular Hgb 34.5 pg (27.0-32.0); Mean Corpuscular Volume 102.2 fL (80-94); Mean Platelet Vol. 11.2 fl (6.2-12.0); Monocyte# 0.47 X10^3/uL; Monocyte% 10.7 % (0-10); Neutrophil # 3.34 X10^3/uL (2.7-7.7); Neutrophil % 76.3 % (47-70); Platelet Count 66 K/mm3 (150-450); RBC Distribution Width CV 16.3 % (11.6-14.6); RBC Distribution Width SD 57.6 fl (35.1-43.9); Red Blood Count 2.67 M/mm3 (4.6-6.2); White Blood Count 4.4 K/mm3 (4.4-11.0)
[2019-01-05 04:03] LABS: Differential Indicated SCAN CRITERIA MET; POSITIVE COUNT NO; POSITIVE DIFFERENTIAL YES; POSITIVE MORPHOLOGY NO
[2019-01-05 04:16] LABS: Fibrinogen 171 mg/dl (203-444)
[2019-01-05 04:43] VITALS: BP 95/67; PULSE 81; RESP 16; TEMP 36.7; O2SAT 96
== END 2019-01-05 04:59 | disposition short-term general hospital (02) ==
PROVIDERS: Emergency Provider Emergency Medicine; Family Provider Family Medicine; PCP Family Medicine
DX: K92.2 Gastrointestinal hemorrhage, unspecified (principal); K70.30 Alcoholic cirrhosis of liver without ascites; I85.10 Secondary esophageal varices without bleeding; I27.20 Pulmonary hypertension, unspecified; E11.9 Type 2 diabetes mellitus without complications; Z86.2 Personal history of diseases of the blood and blood-forming organs and certain disorders involving the immune mechanism; Z87.19 Personal history of other diseases of the digestive system; Z86.19 Personal history of other infectious and parasitic diseases; Z79.899 Other long term (current) drug therapy; F17.200 Nicotine dependence, unspecified, uncomplicated
CPT/HCPCS: 80053; 82274; 82962; 85025; 85384; 85610; 85730; 96361; 96365; 96368; 99285; J7030; J7040; A4216; J3490

== ENCOUNTER 2019-07-08 18:07 | Emergency (ER) | payer MEDICARE, SELFPAY ==
[2019-07-08 18:12] VITALS: PULSE 62; RESP 17; TEMP 36.4; O2SAT 96; BMI 23.6
[2019-07-08 18:20] VITALS: BP 94/72; PULSE 62; RESP 14; O2SAT 96
--- NOTE | 2019-07-08 18:27 | ED.DCSUM_ITS ---
History of Present Illness Chief Complaint: Shortness of Breath Detail of Chief Complaint: Due to ascites Informant: Patient, Family Onset: Days Context: Gradual Onset Timing: Continuous Quality: Dyspnea and dyspnea with exertion Location: Respiratory secondary to ascites Current Severity: Mild Maximum Severity: Moderate Worsened by: Activity Relieved by: Nothing Associated Symptoms: No other symptoms Narrative: Patient is a middle-age male who was seen by preschool assistant principal at [facility]. Outdoor Advertising Leasing Agent requested paracentesis to be performed last Tuesday. He is not able to be seen for paracentesis until next week. Patient presents because of increased increasing abdominal girth and difficulty breathing. He denies fever, chills night sweats. He denies chest pain. He denies abdominal pain. He denies nausea or vomiting. He does report dark-colored urine. Prior similar symptoms: Yes Recent Illness/Hospitalization: Yes - Past Medical History (1) Acute kidney failure Status: Acute (2) Hepatic encephalopathy Status: Acute (3) Hyponatremia Status: Acute (4) Alcoholic cirrhosis of liver Status: Chronic (5) DM2 (diabetes mellitus, type 2) Status: Chronic (6) Pancytopenia Status: Chronic Past Medical History - Allergies and Home Meds Allergies/Adverse Reactions: Allergies No Known Allergies Allergy (Verified 07/08/19 18:07) Primary Care Physician: Satnam Eaton DO [Primary Care Provider] - Prior records reviewed: Yes Surgical History: - - Knee surgery as a child Lives: With Family Smoking Status: Current every day smoker Alcohol: Sober Drugs: None - Family History Maternal Family History: Reports: Diabetes Paternal Family History: Reports: No pertinent history Review of Systems General: Denies: Chills, Fever, Sweats Eyes: Denies: Visual changes - bilaterally, Blurred Vision - bilaterally, Diplopia ENT: Denies: Bilateral ear pain, Rhinorrhea, Sore throat Cardiovascular: Denies: Chest pain, Palpitations Respiratory: Reports: Dyspnea, Dyspnea on exertion. Denies: Cough Gastrointestinal: Denies: Abdominal pain, Nausea, Vomiting, Diarrhea, Melena, Hematochezia Genitourinary: Denies: Dysuria, Hematuria, Frequency Musculoskeletal: Denies: Back pain, Extremity Pain Skin: Denies: Rash, Wounds Neurological: Denies: Headache, Weakness, Numbness Hematologic: Denies: Easy bruising, Easy bleeding Allergy: Denies: Uticaria, Swelling of the mouth Physical Exam Vital Signs/Narrative: Vital Signs Temp Pulse Resp Pulse Ox 07/08/19 18:12 97.6 F L 62 17 96 Inital Vital Signs reviewed: Yes General: Well nourished, Well developed Head: Normocephalic, Atraumatic Eyes: Perrl, EOMI, Scleral icterus ENT: No rhinorrhea Neck: Supple, Nontender, No lymphadenopathy, No JVD Cardiovascular: Regular rate, Regular rhythm, No murmurs, Normal S1, Normal S2 Abdomen: Soft, Nontender, Hypoactive bowel sounds, - - There is a fluid wave noted.. Negative for: Nondistended, Normal bowel sounds Rectal: Deferred Back: Nontender, Normal Inspection Extremities: Nontender, No edema Skin: No rash, Jaundice, No Trauma. Negative for: Cyanosis, Diaphoresis Neurological: Alert, Oriented x3, Cranial nerves II-XII grossly intact, Normal Strength, Normal Sensation Psychological: Depressed Diagnostic/Tx/Re-eval Laboratory Results 07/08/19 07/08/19 18:53 18:53 WBC 3.6 L RBC 3.57 L Hgb 12.0 L Hct 36.5 L MCV 102.2 H MCH 33.6 H MCHC 32.9 RDW Std Deviation 70.9 H RDW Coeff of Jose Francisco 18.7 H Plt Count 43 L* MPV 11.0 Immature Gran % (Auto) 0.800 Neut % (Auto) 77.2 H Lymph % (Auto) 7.8 L [place] % (Auto) 12.0 H Eos % (Auto) 1.9 Baso % (Auto) 0.3 Absolute Neuts (auto) 2.8 Absolute Lymphs (auto) 0.28 L Nucleated RBC % 0 Differential Comment SCANNED Diff Path Review May foll Platelet Estimate MKD DEC Anisocytosis 2+ Macrocytosis 1+ Tear Drop Cells RARE Sodium 133 L Potassium 4.3 Chloride 98 Carbon Dioxide 25.0 Anion Gap 10 BUN 34 H Creatinine 1.41 H Estim Creat Clear Calc 59.68 Est GFR (MDRD) Af Amer 67 Est GFR (MDRD) Non-Af 55 L BUN/Creatinine Ratio 24.1 H Glucose 201 H Calcium 9.2 Total Bilirubin 2.90 H AST 32 ALT 25 Alkaline Phosphatase 141 H Troponin I < 0.015 Total Protein 7.7 Albumin 2.9 L Globulin 4.8 H Albumin/Globulin Ratio 0.6 L Patient is neutropenic. Patient has pancytopenia. There is a history of pancytopenia. Conference of metabolic panel is remarkable for a total bilirubin of 2.9 and glucose of 201. - Medical Decision Making Since there is history of pancytopenia CBC was obtained to assess platelet count. With history of cirrhosis secondary to alcoholism PT/INR was obtained to determine if he has a coagulopathy. Will consent patient for paracentesis. Procedures Procedure(s): Patient was consented for paracentesis. Patient was informed of risk benefits. Patient was given opportunity to ask questions. He states he had this before many times. He had no questions. The right lower quadrant was prepped draped sterile manner. The area was incised 1% lidocaine. Zigzag insertion was made. Clear and straw-colored ascitic fluid was aspirated. Removed approximately 6.5 L. ED Disposition - Plan for ED Patient: Disposition: Home or Assisted Living Diagnosis: Dyspnea on minimal exertion, Ascites due to alcoholic cirrhosis, Jaundice, Renal insufficiency, Pancytopenia Instructions: Paracentesis Referrals: Satnam Eaton DO [Primary Care Provider] -
[2019-07-08 18:47] VITALS: O2SAT 96
[2019-07-08 19:07] LABS: Absolute Lymphocyte Count 0.28 X10^3/uL (0.83-4.51); Absolute Neutrophil Count 2.8 X10^3/uL (2.0-7.7); Basophil# 0.01 X10^3/uL; Basophil% 0.3 % (0-1); Eosinophil# 0.07 X10^3/uL; Eosinophils% 1.9 % (0-5); Hematocrit 36.5 % (40-54); Lymphocyte # 0.28 X10^3/ul (4.0); Lymphocyte % 7.8 % (19-41); Mean Corp Hgb Conc 32.9 g/dL (32-36); Mean Corpuscular Hgb 33.6 pg (27.0-32.0); Mean Corpuscular Volume 102.2 fL (80-94); Monocyte# 0.43 X10^3/uL; NRBC Flagged by Analyzer 0 % (0-5); Neutrophil # 2.77 X10^3/uL (2.7-7.7); Neutrophil % 77.2 % (47-70); POSITIVE COUNT YES; POSITIVE DIFFERENTIAL YES; POSITIVE MORPHOLOGY YES; RBC Distribution Width CV 18.7 % (11.6-14.6); RBC Distribution Width SD 70.9 fl (35.1-43.9); Red Blood Count 3.57 M/mm3 (4.6-6.2); White Blood Count 3.6 K/mm3 (4.4-11.0)
[2019-07-08 19:11] LABS: Differential Indicated SCAN CRITERIA MET
[2019-07-08 19:12] LABS: Platelet Count 43 K/mm3 (150-450)
--- NOTE | 2019-07-08 19:14 | ED.RN ---
Lab called to report platelet count 43. Dr. Grajeda made aware.
[2019-07-08 19:26] LABS: Albumin, Serum 2.9 g/dL (3.2-5.0); BUN 34 mg/dL (7-18); BUN/Creat Ratio 24.1 RATIO (10-20); Creatinine, Serum 1.41 mg/dL (0.70-1.30); EST Glomerular Filtration Rate 55 mL/min (>60); Est Glom Filt Rate - Afr Amer 67 mL/min (>60); Estimated Creatinine Clearance 59.68 ml/min; Globulin 4.8 g/dL (2.2-4.2); Glucose 201 mg/dL (74-106); Protein, Total 7.7 g/dL (6.4-8.2)
[2019-07-08 19:27] LABS: ALB/GLOB Ratio 0.6 RATIO (0.9-2.4); AST(SGOT) 32 U/L (15-37); Alanine Aminotransfer ALT/SGPT 25 U/L (16-61); Alkaline Phosphatase 141 U/L (45-117); Anion Gap 10 (5-15); Calcium,Total 9.2 mg/dL (8.5-10.1); Chloride 98 mmol/L (98-107); Potassium 4.3 mmol/L (3.5-5.1); Sodium Level 133 mmol/L (136-145)
[2019-07-08] MEDS: Ondansetron 4 MG/2 ML Vial IV (19:38)
[2019-07-08] MEDS: Morphine 4 MG/ML Syringe IV ×2 (19:42→22:15)
[2019-07-08 20:00] LABS: Anisocytosis 2+; Differential Comment SCANNED; Platelet Estimate MKD DEC (ADEQ); Tear Drop Cell RARE
[2019-07-08 20:02] LABS: Macrocytosis 1+
[2019-07-08 20:07] VITALS: BP 90/68; PULSE 67; RESP 13; O2SAT 91
[2019-07-08 22:00] VITALS: BP 93/62; PULSE 63; RESP 13; O2SAT 97
[2019-07-08 23:24] VITALS: BP 91/69; PULSE 64; TEMP -8.3; TEMP 17; O2SAT 95
[2019-07-10 10:32] LABS: Pathologist Review Reviewed
== END 2019-07-08 23:25 | disposition home or self-care (01) ==
PROVIDERS: Emergency Provider Emergency Medicine; Family Provider Family Medicine; PCP Family Medicine
DX: R06.09 Other forms of dyspnea (principal); K70.31 Alcoholic cirrhosis of liver with ascites; N28.9 Disorder of kidney and ureter, unspecified; D61.818 Other pancytopenia; E11.9 Type 2 diabetes mellitus without complications; Z79.899 Other long term (current) drug therapy; F17.200 Nicotine dependence, unspecified, uncomplicated
CPT/HCPCS: 36415; 49082; 80053; 84484; 85025; 96374; 96375; 96376; 99285; A4216; J2405

== ENCOUNTER 2019-08-01 16:32 | Outpatient (RCR) | payer MEDICARE, SELFPAY ==
[2019-08-01 17:06] LABS: Absolute Lymphocyte Count 0.22 X10^3/uL (0.83-4.51); Absolute Neutrophil Count 4.1 X10^3/uL (2.0-7.7); Hematocrit 28.8 % (40-54); Lymphocyte # 0.22 X10^3/ul (4.0); Lymphocyte % 4.4 % (19-41); Mean Corp Hgb Conc 34.7 g/dL (32-36); Mean Corpuscular Hgb 34.8 pg (27.0-32.0); Mean Corpuscular Volume 100.3 fL (80-94); Mean Platelet Vol. 11.9 fl (6.2-12.0); Monocyte# 0.57 X10^3/uL; Monocyte% 11.4 % (0-10); NRBC Flagged by Analyzer 0 % (0-5); Neutrophil # 4.09 X10^3/uL (2.7-7.7); Neutrophil % 81.6 % (47-70); POSITIVE COUNT YES; POSITIVE DIFFERENTIAL YES; POSITIVE MORPHOLOGY YES; Platelet Count 36 K/mm3 (150-450); RBC Distribution Width CV 17.8 % (11.6-14.6); RBC Distribution Width SD 66.1 fl (35.1-43.9); Red Blood Count 2.87 M/mm3 (4.6-6.2)
[2019-08-01 17:21] LABS: Differential Indicated SCAN CRITERIA MET
[2019-08-01 17:31] LABS: International Normalized Ratio 1.7; Prothrombin Time (Protime)PT. 19.8 SECONDS (11.7-14.9)
[2019-08-01 17:53] LABS: AST(SGOT) 34 U/L (15-37); Alanine Aminotransfer ALT/SGPT 28 U/L (16-61); Albumin, Serum 3.2 g/dL (3.2-5.0); Alkaline Phosphatase 217 U/L (45-117); Anion Gap 13 (5-15); BUN 95 mg/dL (7-18); BUN/Creat Ratio 19.9 RATIO (10-20); Bilirubin, Direct 1.11 mg/dL (0.00-0.30); Calcium,Total 8.6 mg/dL (8.5-10.1); Chloride 94 mmol/L (98-107); Creatinine, Serum 4.78 mg/dL (0.70-1.30); EST Glomerular Filtration Rate 13 mL/min (>60); Est Glom Filt Rate - Afr Amer 16 mL/min (>60); Globulin 3.2 g/dL (2.2-4.2); Glucose 151 mg/dL (74-106); Potassium 4.7 mmol/L (3.5-5.1); Protein, Total 6.4 g/dL (6.4-8.2); Sodium Level 124 mmol/L (136-145)
[2019-08-02 09:36] LABS: Pathologist Review Reviewed
[2019-08-03 13:37] LABS: AFP, Tumor Marker 8.8 ng/mL (0.0-8.3)
== END 2019-08-01 18:00 | disposition home or self-care (01) ==
LOC: LAB 16:32
PROVIDERS: Family Provider Family Medicine; PCP Family Medicine
DX: K70.31 Alcoholic cirrhosis of liver with ascites (principal); Z76.82 Awaiting organ transplant status; R94.6 Abnormal results of thyroid function studies; Z86.73 Personal history of transient ischemic attack (TIA), and cerebral infarction without residual deficits
CPT/HCPCS: 36415; 80048; 80076; 82105; 85025; 85610

== ENCOUNTER 2019-08-01 20:30 | Emergency (ER) | payer MEDICARE, SELFPAY ==
[2019-08-01] VITALS (8 sets, daily range): BP systolic 58–92; BP diastolic 32–58; PULSE 48–52; RESP 14–18; TEMP 36.7–36.8; O2SAT 92–100; BMI 22.6
--- NOTE | 2019-08-01 20:44 | ED.RN ---
2ND BAG OF IV FLUIDS WIDE OPENED STARTED PER MD
[2019-08-01] MEDS: 0.9% Normal Saline 1,000 ML IV.SOLN. 1000 ML IV ×3 (20:48→21:45)
--- NOTE | 2019-08-01 20:53 | EKG12_ITS ---
Test Reason : ABD PAIN Blood Pressure : / mmHG Vent. Rate : 047 BPM Atrial Rate : 047 BPM P-R Int : 178 ms QRS Dur : 116 ms QT Int : 570 ms P-R-T Axes : 044 095 022 degrees QTc Int : 504 ms Sinus bradycardia Rightward axis Prolonged QT Abnormal ECG Confirmed by JAMIL PUENTE, CONNOR ([id number]), web editor ASHU MACARIO ([id number]) on 08/05/2019 9:54:55 AM Referred By: ANNA Confirmed By:DAYANA NEGRON MD
--- NOTE | 2019-08-01 20:54 | ED.VIS.GEN ---
History of Present Illness Chief Complaint: Hypotension Informant: Patient, Family, Toll Line Repairer Onset: Today - couple hrs Context: Sudden Onset Timing: Continuous Quality: weak Location: all over Current Severity: Moderate Maximum Severity: Moderate Worsened by: nothing Relieved by: nothing; 600cc IVF en route by EMS Associated Symptoms: low BP Narrative: Patient has a history of alcoholic cirrhosis and hemochromatosis. He has significant ascites that he was getting paracenteses for monthly, now it is biweekly. His last one was 2.5 weeks ago, they have been trying to get him another tap, but today he became acutely confused and low blood pressure. This is happened many times in the recent past, and it is usually related to increasing ammonia levels. He is on a transplant list and working with [facility] with regards to that. They called the operations manager/coordinator who advised that they come to the local ER for stabilization and then transfer to [facility] for further treatment. No other recent illnesses. Patient states it is hard to breathe at times because of the swelling and tightness in his abdomen, but he denies any cough or dyspnea or chest discomfort. No vomiting or diarrhea lately. He has been compliant with his lactulose 3 times daily, as well as his other medications since now he has a home health nurse and a daughter who helps with all of his medications. No recent falls or injuries. Daughter states that his normal blood pressure is 90s/60s. - Past Medical History (1) Acute kidney failure Status: Chronic (2) Hepatic encephalopathy Status: Chronic (3) Alcoholic cirrhosis of liver Status: Chronic (4) DM2 (diabetes mellitus, type 2) Status: Chronic (5) Pancytopenia Status: Chronic Past Medical History - Allergies and Home Meds Allergies/Adverse Reactions: Allergies No Known Allergies Allergy (Verified 08/01/19 20:40) Primary Care Physician: Satnam Eaton DO [Primary Care Provider] - Surgical History: - - Knee surgery as a child Lives: With Family Smoking Status: Current every day smoker Alcohol: Sober - Family History Maternal Family History: Reports: Diabetes Paternal Family History: Reports: No pertinent history Review of Systems General: Reports: Malaise. Denies: Chills, Fever, Sweats Eyes: Denies: Visual changes - bilaterally, Diplopia ENT: Denies: Rhinorrhea, Sore throat Cardiovascular: Denies: Chest pain, Palpitations Respiratory: Denies: Dyspnea, Cough, Dyspnea on exertion Gastrointestinal: Reports: - - Abdominal distention. Denies: Abdominal pain, Nausea, Vomiting, Diarrhea, Melena, Hematochezia Genitourinary: Reports: - - Decreased urine output x5-7 days. Denies: Dysuria, Hematuria, Frequency Musculoskeletal: Reports: Back pain - Chronic. Denies: Neck pain, Extremity Pain Skin: Denies: Rash, Wounds Neurological: Reports: - - Disorientation. Denies: Headache, Weakness, Numbness Physical Exam Vital Signs/Narrative: Vital Signs Temp Pulse Resp BP Pulse Ox 08/01/19 20:44 48 L 15 78/54 L 94 08/01/19 20:31 98.0 F 48 L 18 77/55 L 100 Inital Vital Signs reviewed: Yes General: Well nourished, Well developed, No Acute Distress Head: Normocephalic, Atraumatic Eyes: Perrl, EOMI, Scleral icterus ENT: Moist mucous membranes, No rhinorrhea Neck: Supple, Nontender, No lymphadenopathy Cardiovascular: Regular rate, Regular rhythm, No murmurs, Bradycardia Respiratory: No distress, CTA bilaterally, Chest nontender Abdomen: Soft, Nontender, Normal bowel sounds. Negative for: Nondistended - Significant distention with ascites., Rebound tenderness Back: Nontender, Normal Inspection Extremities: Nontender, No edema Skin: Normal color, No rash, No Trauma Neurological: Alert, Cranial nerves II-XII grossly intact, Normal Strength, Normal Sensation, Disoriented - To time Psychological: Normal affect, Normal Mood Diagnostic/Tx/Re-eval Laboratory Tests 08/01/19 08/01/19 08/01/19 Range/Units 20:40 20:40 20:40 WBC (4.4-11.0) K/mm3 RBC (4.6-6.2) M/mm3 Hgb (13.0-16.5) g/dL Hct (40-54) % MCV (80-94) fL MCH (27.0-32.0) pg MCHC (32-36) g/dL RDW Std Deviation (35.1-43.9) fl RDW Coeff of Jose Francisco (11.6-14.6) % Plt Count (150-450) K/mm3 MPV (6.2-12.0) fl Immature Gran % (Auto) (0.0-0.9) % Neut % (Auto) (47-70) % Lymph % (Auto) (19-41) % [place] % (Auto) (0-10) % Eos % (Auto) (0-5) % Baso % (Auto) (0-1) % Absolute Neuts (auto) (2.0-7.7) X10^3/uL Absolute Lymphs (auto) (0.83-4.51) X10^3/uL Nucleated RBC % (0-5) % Differential Comment Diff Path Review PT 20.9 H (11.7-14.9) SECONDS INR 1.8 Sodium 125 L (136-145) mmol/L Potassium 5.0 (3.5-5.1) mmol/L Chloride 94 L (98-107) mmol/L Carbon Dioxide 20.0 L (21.0-32.0) mmol/L Anion Gap 11 (5-15) BUN 95 H (7-18) mg/dL Creatinine 4.87 H (0.70-1.30) mg/dL Estim Creat Clear Calc 16.92 ml/min Est GFR (MDRD) Af Amer 16 L (>60) mL/min Est GFR (MDRD) Non-Af 13 L (>60) mL/min BUN/Creatinine Ratio 19.5 (10-20) RATIO Glucose 168 H (74-106) mg/dL Calcium 8.5 (8.5-10.1) mg/dL Total Bilirubin 2.50 H (0.20-1.00) mg/dL AST 47 H (15-37) U/L ALT 29 (16-61) U/L Alkaline Phosphatase 209 H (45-117) U/L Ammonia < 10.0 L (11-32) umol/L Total Protein 6.3 L (6.4-8.2) g/dL Albumin 3.1 L (3.2-5.0) g/dL Globulin 3.2 (2.2-4.2) g/dL Albumin/Globulin Ratio 1.0 (0.9-2.4) RATIO 08/01/19 Range/Units 20:40 WBC 4.8 (4.4-11.0) K/mm3 RBC 2.93 L (4.6-6.2) M/mm3 Hgb 10.4 L (13.0-16.5) g/dL Hct 29.5 L (40-54) % MCV 100.7 H (80-94) fL MCH 35.5 H (27.0-32.0) pg MCHC 35.3 (32-36) g/dL RDW Std Deviation 65.5 H (35.1-43.9) fl RDW Coeff of Jose Francisco 17.6 H (11.6-14.6) % Plt Count 32 L* (150-450) K/mm3 MPV 13.3 H (6.2-12.0) fl Immature Gran % (Auto) 0.600 (0.0-0.9) % Neut % (Auto) 85.9 H (47-70) % Lymph % (Auto) 3.5 L (19-41) % [place] % (Auto) 9.2 (0-10) % Eos % (Auto) 0.8 (0-5) % Baso % (Auto) 0.0 (0-1) % Absolute Neuts (auto) 4.1 (2.0-7.7) X10^3/uL Absolute Lymphs (auto) 0.17 L (0.83-4.51) X10^3/uL Nucleated RBC % 0 (0-5) % Differential Comment SCANNED Diff Path Review May foll PT (11.7-14.9) SECONDS INR Sodium (136-145) mmol/L Potassium (3.5-5.1) mmol/L Chloride (98-107) mmol/L Carbon Dioxide (21.0-32.0) mmol/L Anion Gap (5-15) BUN (7-18) mg/dL Creatinine (0.70-1.30) mg/dL Estim Creat Clear Calc ml/min Est GFR (MDRD) Af Amer (>60) mL/min Est GFR (MDRD) Non-Af (>60) mL/min BUN/Creatinine Ratio (10-20) RATIO Glucose (74-106) mg/dL Calcium (8.5-10.1) mg/dL Total Bilirubin (0.20-1.00) mg/dL AST (15-37) U/L ALT (16-61) U/L Alkaline Phosphatase (45-117) U/L Ammonia (11-32) umol/L Total Protein (6.4-8.2) g/dL Albumin (3.2-5.0) g/dL Globulin (2.2-4.2) g/dL Albumin/Globulin Ratio (0.9-2.4) RATIO - Rhythm Strip Rhythm Strip: Sinus Rhythm Rate: 47 Ectopy: None - EKG Initial EKG Interpretation: No Acute Injury Pattern, Sinus Bradycardia, - - prolonged QTc Prior: Unchanged - Medical Decision Making Labs show normal ammonia but severely elevated creatinine compared to his baseline. This would explain his lack of urine output recently. His blood pressure did not respond significantly to 2 L of IV isotonic saline boluses, so given his ascites and cirrhosis he was given 25 g of IV albumin. This did help his blood pressure, came up to 92 systolic. Clinically he is doing the same. He is asking for morphine for his back pain, which I do not think is in his best interest right now given his blood pressure issues. He does appear to need a paracentesis. He has no tenderness or rebound pain to suggest spontaneous bacterial peritonitis here, so since he is breathing well and not in significant abdominal discomfort, I feel this can wait to be tapped. Discussed with [facility], accepted by the liver transplant service in transfer. ED Disposition - Plan for ED Patient: Disposition: Acute Care Hospital - Other Diagnosis: ARF (acute renal failure), Hyponatremia, Alcoholic cirrhosis of liver, Generalized weakness, Pancytopenia Referrals: Satnam Eaton DO [Primary Care Provider] -
[2019-08-01] MEDS: 0.9% Normal Saline 1,000 ML 999 ML IV (21:02)
[2019-08-01 21:13] LABS: Absolute Lymphocyte Count 0.17 X10^3/uL (0.83-4.51); Absolute Neutrophil Count 4.1 X10^3/uL (2.0-7.7); Eosinophil# 0.04 X10^3/uL; Eosinophils% 0.8 % (0-5); Hematocrit 29.5 % (40-54); Hemoglobin 10.4 g/dL (13.0-16.5); Lymphocyte # 0.17 X10^3/ul (4.0); Lymphocyte % 3.5 % (19-41); Mean Corp Hgb Conc 35.3 g/dL (32-36); Mean Corpuscular Hgb 35.5 pg (27.0-32.0); Mean Corpuscular Volume 100.7 fL (80-94); Mean Platelet Vol. 13.3 fl (6.2-12.0); Monocyte# 0.44 X10^3/uL; Monocyte% 9.2 % (0-10); NRBC Flagged by Analyzer 0 % (0-5); Neutrophil # 4.12 X10^3/uL (2.7-7.7); Neutrophil % 85.9 % (47-70); POSITIVE COUNT YES; POSITIVE DIFFERENTIAL YES; POSITIVE MORPHOLOGY YES; RBC Distribution Width CV 17.6 % (11.6-14.6); RBC Distribution Width SD 65.5 fl (35.1-43.9); Red Blood Count 2.93 M/mm3 (4.6-6.2); White Blood Count 4.8 K/mm3 (4.4-11.0)
[2019-08-01 21:22] LABS: Differential Indicated SCAN CRITERIA MET
[2019-08-01 21:23] LABS: Ammonia < 10.0 umol/L (11-32); Platelet Count 32 K/mm3 (150-450)
--- NOTE | 2019-08-01 21:23 | ED.RN ---
plt of 32 reported to
[2019-08-01 21:29] LABS: AST(SGOT) 47 U/L (15-37); Alanine Aminotransfer ALT/SGPT 29 U/L (16-61); Albumin, Serum 3.1 g/dL (3.2-5.0); Alkaline Phosphatase 209 U/L (45-117); Anion Gap 11 (5-15); BUN 95 mg/dL (7-18); BUN/Creat Ratio 19.5 RATIO (10-20); Calcium,Total 8.5 mg/dL (8.5-10.1); Chloride 94 mmol/L (98-107); Creatinine, Serum 4.87 mg/dL (0.70-1.30); EST Glomerular Filtration Rate 13 mL/min (>60); Est Glom Filt Rate - Afr Amer 16 mL/min (>60); Estimated Creatinine Clearance 16.92 ml/min; Globulin 3.2 g/dL (2.2-4.2); Glucose 168 mg/dL (74-106); Protein, Total 6.3 g/dL (6.4-8.2); Sodium Level 125 mmol/L (136-145)
[2019-08-01 21:35] LABS: International Normalized Ratio 1.8; Prothrombin Time (Protime)PT. 20.9 SECONDS (11.7-14.9)
[2019-08-01 21:45] LABS: Differential Comment SCANNED
[2019-08-01] MEDS: Albumin Human 25% (100 mL) 25 GM/100 ML BAG IV (21:55)
[2019-08-01] MEDS: 0.9% Normal Saline 1,000 ML 250 ML IV (23:53)
[2019-08-02] VITALS (15 sets, daily range): BP systolic 77–96; BP diastolic 1–70; PULSE 50–58; RESP 12–18; TEMP 36.7; O2SAT 90–96
[2019-08-02] MEDS: Ondansetron 4 MG/2 ML Vial IV ×2 (00:55→09:11)
--- NOTE | 2019-08-02 01:54 | RAD_ITS ---
STUDY: X-RAY - ABDOMEN/PELVIS REASON FOR EXAM: Male, 59 years old. Vomiting and abdominal distention TECHNIQUE: Single AP view of the abdomen / pelvis. COMPARISON: None. FINDINGS: Patchy airspace opacification at bilateral lung bases. Nondilated air-filled loops of small bowel in the right lower quadrant. Mild gaseous distention of the colon. No bowel wall thickening. No free intraperitoneal air. The visualized liver, spleen and kidneys are grossly normal in size and morphology. Cholecystectomy clips noted. No intra-abdominal calcification. Normal soft tissue structures. Normal visualized osseous structures. RAD/Abdomen Single View (Portable) IMPRESSION: 1. Nonobstructive bowel gas pattern. 2. Atelectasis versus infiltrate at bilateral lung bases. Electronically Signed: Timothy Dawkins MD at 3:12 EST Tel , Service support ,
--- NOTE | 2019-08-02 02:10 | ED.RN ---
CALLED [facility] STILL WAITING ON A BED
--- NOTE | 2019-08-02 03:07 | CT_ITS ---
STUDY: CT ABDOMEN AND PELVIS WITHOUT CONTRAST REASON FOR EXAM: Male, 59 years old. Abdominal distention with cirrhosis RADIATION DOSAGE (If Supplied By Facility): CTDIvol = ( 14.80 ) mGy, DLP = ( 950.46 ) mGycm TECHNIQUE: Transaxial images were obtained from the dome of the diaphragm to the symphysis pubis without oral contrast, and without intravenous contrast. Sagittal and coronal images were reconstructed. Individualized dose optimization techniques were used for this CT. COMPARISON: 12/20/2016 FINDINGS: Patchy peribronchial airspace alteration at the left lung base small left pleural effusion The visualized portions of the heart are within normal limits. Shrunken nodular appearance to the liver. Ill-defined hypoattenuated lesion in the right posterior hepatic segment. Metallic structures in the peripheral right posterior segment Normal gallbladder and extrahepatic biliary system. Normal spleen. Normal pancreas. Normal bilateral adrenal glands. Normal right kidney. Normal left kidney. Normal visualized stomach. Normal small bowel loops. Concentric mucosal thickening of the ascending colon and hepatic flexure, as well as the splenic flexure and proximal descending colonic segment.. The appendix is visualized and appears normal. Mild atherosclerotic plaque within the abdominal fascia in nature. Normal inferior vena cava. Large amount of intra-abdominal ascites. No free intraperitoneal air. Normal urinary bladder. Normal abdominal wall. Mild multilevel degenerative change of the spine. CT/Abdomen/Pelvis without Cont IMPRESSION: 1. Cirrhotic changes of the liver with associated large volume ascites 2. Ill-defined hypoattenuated lesion in the right posterior hepatic segment which is new, potentially representing hepatocellular carcinoma. 3. Mild concentric multisegmental concentric mucosal wall thickening congested hepatic colopathy. Electronically Signed: Timothy Dawkins MD at 4:06 EST Tel , Service support ,
--- NOTE | 2019-08-02 03:07 | ED.RN ---
EVONNE WITH [facility] WE STILL DON'T HAVE ANY BEDS AVAILABLE
[2019-08-02] MEDS: fentaNYL 100 MCG/2 ML Ampul 25 MCG IV (03:10)
[2019-08-02] MEDS: 0.9% Normal Saline 1,000 ML 250 ML IV (03:41)
[2019-08-02 03:42] LABS: Absolute Lymphocyte Count 0.19 X10^3/uL (0.83-4.51); Eosinophil# 0.01 X10^3/uL; Eosinophils% 0.2 % (0-5); Hematocrit 27.5 % (40-54); Hemoglobin 9.4 g/dL (13.0-16.5); Lymphocyte # 0.19 X10^3/ul (4.0); Lymphocyte % 3.4 % (19-41); Mean Corp Hgb Conc 34.2 g/dL (32-36); Mean Corpuscular Hgb 34.8 pg (27.0-32.0); Mean Corpuscular Volume 101.9 fL (80-94); Monocyte# 0.38 X10^3/uL; Monocyte% 6.7 % (0-10); NRBC Flagged by Analyzer 0 % (0-5); Neutrophil # 5.01 X10^3/uL (2.7-7.7); POSITIVE COUNT YES; POSITIVE DIFFERENTIAL YES; POSITIVE MORPHOLOGY YES; RBC Distribution Width CV 18.1 % (11.6-14.6); RBC Distribution Width SD 67.5 fl (35.1-43.9); White Blood Count 5.6 K/mm3 (4.4-11.0)
[2019-08-02 03:56] LABS: Anion Gap 12 (5-15); BUN 80 mg/dL (7-18); BUN/Creat Ratio 20.8 RATIO (10-20); Chloride 104 mmol/L (98-107); Creatinine, Serum 3.85 mg/dL (0.70-1.30); EST Glomerular Filtration Rate 17 mL/min (>60); Est Glom Filt Rate - Afr Amer 21 mL/min (>60); Estimated Creatinine Clearance 21.41 ml/min; Glucose 151 mg/dL (74-106); Potassium 4.3 mmol/L (3.5-5.1); Sodium Level 129 mmol/L (136-145)
[2019-08-02 04:07] LABS: Differential Indicated SCAN CRITERIA MET; Platelet Count 24 K/mm3 (150-450)
[2019-08-02 04:09] LABS: Lactic Acid 1.3 mmol/L (0.4-1.9)
[2019-08-02 04:11] LABS: Anisocytosis 1+; Differential Comment SCANNED; Platelet Estimate MKD DEC (ADEQ); Platelet Morphology LARGE
--- NOTE | 2019-08-02 04:38 | ED.RN ---
EVONNE WITH [facility] IT WILL PROBABLY AFTER SHIFT CHANGE BEFORE WE HAVE A BED
--- NOTE | 2019-08-02 05:08 | ED.RN ---
0400 DR JADE AT THE BEDSIDE.PT C/O ABOUT WANTING MORE PAIN MEDS AND NOT THAT SHIT I GOT EARLIER.MD INFORMED HIM THAT WITH HIS BP BEING LOW,THE GOAL IS TO KEEP HIM ALIVE AND TRY TO GET HIM STABLE.
[2019-08-02] MEDS: HYDROmorphone 0.5 MG/0.5 ML SYRINGE IV ×2 (05:54→09:11)
[2019-08-02] MEDS: 0.9% Normal Saline 1,000 ML IV.SOLN. 1000 ML IV (06:43)
--- NOTE | 2019-08-02 08:59 | ED.RN ---
bed at [place] [id number] [phone]
--- NOTE | 2019-08-02 09:07 | ED.RN ---
called [facility] for [facility].arrival time 45-1 hour
[2019-08-02 09:37] LABS: Pathologist Review Reviewed
[2019-08-02 09:39] LABS: Pathologist Review Reviewed
== END 2019-08-02 09:54 | disposition short-term general hospital (02) ==
PROVIDERS: Emergency Medicine; Emergency Provider Emergency Medicine; Family Provider Family Medicine; PCP Family Medicine
DX: N17.9 Acute kidney failure, unspecified (principal); E87.1 Hypo-osmolality and hyponatremia; K70.31 Alcoholic cirrhosis of liver with ascites; R53.1 Weakness; D61.818 Other pancytopenia; E11.9 Type 2 diabetes mellitus without complications; M54.9 Dorsalgia, unspecified; G89.29 Other chronic pain; Z79.899 Other long term (current) drug therapy; F17.200 Nicotine dependence, unspecified, uncomplicated; Z76.82 Awaiting organ transplant status; R94.6 Abnormal results of thyroid function studies; Z86.73 Personal history of transient ischemic attack (TIA), and cerebral infarction without residual deficits
CPT/HCPCS: 36415; 74018; 74176; 80048; 80053; 80076; 82105; 82140; 83605; 85025; 85610; 93005; 96361; 96365; 96366; 96375; 96376; 99285; J7030; P9047; A4216; J2405